=== PATIENT | female | born 1980 | race Caucasian/White ===

== ENCOUNTER 2018-05-24 19:01 | Outpatient (CLI) | payer MEDICAID ==
[2018-05-24 20:39] LABS: ADD UMIC NO; UR ASCORBIC ACID NEGATIVE (NEGATIVE); UR BILIRUBIN (Dip) NEGATIVE (NEGATIVE); UR BLOOD (Dip) NEGATIVE (NEGATIVE); UR CLARITY CLEAR (CLEAR); UR COLOR YELLOW (YELLOW); UR GLUCOSE (Dip) NEGATIVE (NEGATIVE); UR KETONES (Dip) TRACE mg/dL (NEGATIVE); UR LEUKOCYTE ESTERASE (Dip) NEGATIVE Leu/ul (NEGATIVE); UR NITRITE (Dip) NEGATIVE (NEGATIVE); UR SPECIFIC GRAVITY (Dip) 1.018 (1.003-1.030); UR TOTAL PROTEIN (Dip) NEGATIVE (NEGATIVE); UR UROBILINOGEN (Dip) 1+ mg/dL (NEGATIVE)
== END 2018-05-24 22:23 | disposition home or self-care (01) ==
LOC: OBT 19:01 → L-D 19:02
DX: O26.893 Other specified pregnancy related conditions, third trimester (principal); R10.2 Pelvic and perineal pain; O09.523 Supervision of elderly multigravida, third trimester; Z3A.29 29 weeks gestation of pregnancy
CPT/HCPCS: 76817; 76818; 81003

== ENCOUNTER 2018-07-21 14:47 | Inpatient (IN) | payer MEDICAID ==
[2018-07-21 15:15] LABS: ADD MAN DIFF? NO
[2018-07-21 15:16] LABS: WHITE BLOOD COUNT 7.1 10^3/ul (4.8-10.8)
[2018-07-21 15:16] LABS: BASOPHILS % 0.3 % (0.0-2.0); EOSINOPHILS % 0.6 % (0.0-7.0); HEMATOCRIT 39.4 % (37.0-47.0); HEMOGLOBIN 12.3 g/dl (12.0-16.0); LYMPHOCYTES # 1.7 10^3/ul (0.8-2.9); LYMPHOCYTES % 23.4 % (15.0-51.0); MEAN CORPUSCULAR HEMOGLOBIN 22.1 pg (29.0-33.0); MEAN CORPUSCULAR HGB CONC 31.2 g/dl (32.0-37.0); MEAN CORPUSCULAR VOLUME 70.9 fl (82.0-101.0); MEAN PLATELET VOLUME 11.4 fl (7.4-10.4); MONOCYTE # 0.3 10^3/ul (0.3-0.9); MONOCYTES % 4.8 % (0.0-11.0); NEUTROPHILS % 70.6 % (39.0-77.0); PLATELET COUNT 248 10^3/UL (140-415); RED BLOOD COUNT 5.56 10^6/ul (4.20-5.40); RED CELL DISTRIBUTION WIDTH 14.1 % (11.5-14.5)
[2018-07-21 15:34] LABS: ALANINE AMINOTRANSFERASE 8 IU/L (13-69); ALBUMIN 3.6 g/dl (3.3-4.9); ALBUMIN/GLOBULIN RATIO 1.02; ALKALINE PHOSPHATASE 186 IU/L (42-121); ANION GAP 9 (5-13); ASPARTATE AMINO TRANSFERASE 15 IU/L (15-46); BILIRUBIN,INDIRECT 0.4 mg/dl (0-1.1); BILIRUBIN,TOTAL 0.4 mg/dl (0.2-1.3); BLOOD UREA NITROGEN 11 mg/dl (7-20); CALCIUM 9.1 mg/dl (8.4-10.2); CARBON DIOXIDE 19 mmol/L (21-31); CHLORIDE 106 mmol/L (97-110); CREATININE 0.56 mg/dl (0.44-1.00); Estimated GFR > 60 mL/min (>60); GLUCOSE 91 mg/dl (70-220); POTASSIUM 4.4 mmol/L (3.5-5.1); SODIUM 134 mmol/L (135-144); TOTAL PROTEIN 7.1 g/dl (6.1-8.1)
[2018-07-21 15:37] LABS: ADD UMIC YES; UR ASCORBIC ACID NEGATIVE (NEGATIVE); UR BACTERIA FEW /HPF (NONE SEEN); UR BILIRUBIN (Dip) NEGATIVE (NEGATIVE); UR BLOOD (Dip) NEGATIVE (NEGATIVE); UR CLARITY SLIGHTLY CLOUDY (CLEAR); UR COLOR YELLOW (YELLOW); UR GLUCOSE (Dip) NEGATIVE (NEGATIVE); UR KETONES (Dip) NEGATIVE (NEGATIVE); UR LEUKOCYTE ESTERASE (Dip) 1+ Leu/ul (NEGATIVE); UR NITRITE (Dip) NEGATIVE (NEGATIVE); UR RBC 2 /HPF (0-5); UR SPECIFIC GRAVITY (Dip) 1.009 (1.003-1.030); UR SQUAMOUS EPITHELIAL CELL MODERATE /HPF (FEW); UR TOTAL PROTEIN (Dip) NEGATIVE (NEGATIVE); UR UROBILINOGEN (Dip) NEGATIVE (NEGATIVE); UR WBC 5 /HPF (0-5)
[2018-07-21] MEDS ORDERED: MISOPROSTOL 200 MCG TAB PR (16:30)
[2018-07-21] MEDS ORDERED: OXYTOCIN 30 UNITS/LR 500 ML IV ×3 (16:30)
[2018-07-21] MEDS ORDERED: CARBOPROST 250 MCG INJ IM (16:30)
[2018-07-21] MEDS ORDERED: LIDOCAINE 1% (MPF) 30 ML INJ INJ (16:30)
[2018-07-21] MEDS ORDERED: METHYLERGONOVINE 0.2 MG INJ IM (16:30)
[2018-07-21 16:43] LABS: INR 0.88; PT RATIO 0.9
[2018-07-21 16:44] LABS: PARTIAL THROMBOPLASTIN TIME 30.9 Sec (23.0-35.0)
[2018-07-21] MEDS: LACTATED RINGER'S 1,000 ML IV (20:16)
[2018-07-21] MEDS: OXYTOCIN 30 UNITS/LR 500 ML IV (20:17)
[2018-07-21] MEDS: AMPICILLIN 2 GM/NS (PMX) 100 ML IV (20:48)
[2018-07-22] MEDS: BUTORPHANOL 2 MG INJ IV (00:28)
[2018-07-22] MEDS: AMPICILLIN 1 GM/NS (PMX) 50 ML IV (00:51)
[2018-07-22] MEDS: LACTATED RINGER'S 1,000 ML IV (02:11)
[2018-07-22] MEDS ORDERED: LIDOCAINE 1% (MPF) 30 ML INJ (02:45)
[2018-07-22] MEDS ORDERED: LACTATED RINGER'S 1,000 ML IV* (03:15)
[2018-07-22] MEDS ORDERED: DEXTROSE 5%-LR 1,000 ML IV (03:15)
[2018-07-22] MEDS ORDERED: METHYLERGONOVINE 0.2 MG INJ IM (03:30)
[2018-07-22] MEDS ORDERED: ZOLPIDEM 5 MG TAB PO (03:30)
[2018-07-22] MEDS ORDERED: DIPHENHYDRAMINE 50 MG INJ IV (03:30)
[2018-07-22] MEDS ORDERED: OXYTOCIN 30 UNITS/LR 500 ML IV (03:30)
[2018-07-22] MEDS ORDERED: ONDANSETRON 4 MG INJ IV (03:30)
[2018-07-22] MEDS ORDERED: ACETAMINOPHEN 325 MG TAB PO (03:30)
[2018-07-22] MEDS ORDERED: CARBOPROST 250 MCG INJ IM (03:30)
[2018-07-22] MEDS ORDERED: WITCH HAZEL/GLYCERIN PAD PR (03:30)
[2018-07-22] MEDS ORDERED: DIBUCAINE 1% 30 GM OINT TOP (03:30)
[2018-07-22] MEDS ORDERED: MISOPROSTOL 200 MCG TAB PR (03:30)
[2018-07-22] MEDS: OXYTOCIN 30 UNITS/LR 500 ML IV (04:32)
[2018-07-22] MEDS: OXYCODONE/ASPIRIN (4.88/325) TAB PO (05:05)
[2018-07-22] MEDS: IBUPROFEN 600 MG TAB PO ×4 (06:06→23:22)
[2018-07-22] MEDS: BENZOCAINE 20% 56 ML SPRAY TOP (09:46)
[2018-07-22] MEDS: LANOLIN 7 GM TUBE TOP (09:46)
[2018-07-22 15:07] LABS: RAPID PLASMA REAGIN NONREACTIVE (NR)
[2018-07-22] MEDS: SENNA/DOCUSATE NA (8.6MG/50MG) TAB PO (21:22)
[2018-07-23 08:07] LABS: ADD MAN DIFF? NO
[2018-07-23 08:18] LABS: BASOPHIL # 0.1 10^3/ul (0.0-0.1); BASOPHILS % 0.8 % (0.0-2.0); EOSINOPHILS # 0.2 10^3/ul (0.0-0.5); EOSINOPHILS % 2.1 % (0.0-7.0); HEMATOCRIT 34.8 % (37.0-47.0); HEMOGLOBIN 10.9 g/dl (12.0-16.0); LYMPHOCYTES # 3.1 10^3/ul (0.8-2.9); LYMPHOCYTES % 40.1 % (15.0-51.0); MEAN CORPUSCULAR HEMOGLOBIN 22.2 pg (29.0-33.0); MEAN CORPUSCULAR HGB CONC 31.3 g/dl (32.0-37.0); MEAN CORPUSCULAR VOLUME 70.9 fl (82.0-101.0); MEAN PLATELET VOLUME 11.3 fl (7.4-10.4); MONOCYTE # 0.5 10^3/ul (0.3-0.9); MONOCYTES % 6.3 % (0.0-11.0); NEUTROPHIL # 3.9 10^3/ul (1.6-7.5); NEUTROPHILS % 50.4 % (39.0-77.0); PLATELET COUNT 221 10^3/UL (140-415); RED BLOOD COUNT 4.91 10^6/ul (4.20-5.40)
[2018-07-23 08:18] LABS: WHITE BLOOD COUNT 7.8 10^3/ul (4.8-10.8)
[2018-07-23] MEDS: SENNA/DOCUSATE NA (8.6MG/50MG) TAB PO (09:16)
[2018-07-23] MEDS: IBUPROFEN 600 MG TAB PO ×3 (12:21→19:00)
[2018-07-23] MEDS: MISOPROSTOL 50 MCG CAPSULE VAG (19:49)
[2018-07-24] MEDS: IBUPROFEN 600 MG TAB PO ×4 (06:00→18:48)
[2018-07-24] MEDS: DIPHTH/TET/ACEL PERTUSS (ADULT) 0.5 ML VIAL IM* (07:33)
[2018-07-24] MEDS: MEASLES,MUMPS,RUBELLA VACCINE INJ SC* (07:34)
== END 2018-07-24 20:40 | disposition home or self-care (01) | DRG 807 ==
LOC: OBT 14:47 → PP1 07-22 05:34 → L-D 14:47 → PP1 07-22 16:56 → OBT 16:15 → L-D 16:15
PROC: 4A1HXCZ Monitoring of Products of Conception, Cardiac Rate, External Approach (ICD-10-PCS; 2018-07-21)
PROC: 3E0P7GC Introduction of Other Therapeutic Substance into Female Reproductive, Via Natural or Artificial Opening (ICD-10-PCS; 2018-07-21)
PROC: 10E0XZZ Delivery of Products of Conception, External Approach (ICD-10-PCS; principal; 2018-07-22)
DX: O13.4 Gestational [pregnancy-induced] hypertension without significant proteinuria, complicating childbirth (principal); Z37.0 Single live birth; O99.824 Streptococcus B carrier state complicating childbirth; O36.5930 Maternal care for other known or suspected poor fetal growth, third trimester, not applicable or unspecified; Z3A.37 37 weeks gestation of pregnancy
CPT/HCPCS: 36415; 76815; 76818; 80053; 81001; 84560; 85025; 85610; 85730; 86592; 86850; 86900; 86901; 90715